=== PATIENT | male | born 1960 | race Two or more races ===

== ENCOUNTER 2016-12-08 04:25 | Emergency (ER) | payer MEDICARE, OTHER ==
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
== END 2016-12-08 06:12 | disposition home or self-care (01) ==
LOC: CED 04:25
DX: S60.022A Contusion of left index finger without damage to nail, initial encounter (principal); I10 Essential (primary) hypertension; F17.200 Nicotine dependence, unspecified, uncomplicated; Y08.89XA Assault by other specified means, initial encounter; Y92.9 Unspecified place or not applicable
CPT/HCPCS: 72040; 73130; 73590; 99284